=== PATIENT | female | born 1990 | race Caucasian/White ===

== ENCOUNTER 2020-03-06 07:34 | Outpatient (REF) | payer OTHER, SELFPAY | END 2020-03-06 07:35 | disposition home or self-care (01) | LOC: HO.LAB 07:34 | PROVIDERS: Visit Provider Internal Medicine | DX: Z20.828 Contact with and (suspected) exposure to other viral communicable diseases (principal) | CPT/HCPCS: C9803; U0003 ==

== ENCOUNTER 2024-11-09 07:39 | Outpatient (AMB) | payer MEDICARE, SELFPAY ==
--- NOTE | 2024-11-09 07:53 | A.OFFPC_ITS ---
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 Prior PCP? - Does not recall PCP name or practice Last office visit/CPE/labs - 13 years ago Acute issue(s) - Reports anxiety symptoms. I feel like i'm drowning. Reports racing thoughts which interrupts his sleep. Also notes that he is a little sad, hopeless, and depressed. He states, I have a lot going on, but would not elaborate. His symptoms have been ongoing for about 3 months. Past Medical History - Elevated BP readings at medical/dental visits, GERD, anxiety Surgical History - None Family History - Dad: Alcohol abuse, substance abuse - Mom: Hypertension - MGF: Diabetes, hypertension - MGM: Thyroid disease Social History - Former smoker. Does not vape. Drinks 1 2 beers 2 days weekly (weekends), have been drinking that much for several years. Vapes cannabis occasionally, last time was 2 months ago - He generally eats unhealthy. Active bu t does not exercise. Reports difficulty staying asleep. Reports racing thoughts. Sleeps an average of 5 hours; he snores. Health maintenance - Last eye exam was several years ago. R eferred to Ophthalmology for routine eye exam - Last dental visit was a few months ago - Last tetanus vaccine was more than 10 years ago; received Tdap vaccine today - Has not been vaccinated for the flu ; declines vaccination PENDING SALE TO [facility] Medical History (Updated 11/09/24 @ 13:38 by Rolando Bassett CNP) Anxiety Acid reflux Family History (Updated 11/09/24 @ 08:10 by Grecia Bunn MA) Father Alcohol abuse Substance abuse Sister High blood pressure Mother High blood pressure Maternal Grandfather High blood pressure Diabetes Maternal Grandmother FH: thyroid disease Social History (Updated 11/09/24 @ 08:02 by Grecia Bunn MA) Housing: House Patient Tobacco Use Status: Never used Tobacco e-Cigarette/Vaping Use: Currently Using Second Hand Smoke Exposure: No Substance Use Type: Marijuana service: No Current occupational status: employed 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) Cognitive needs: No Hearing needs: No Vision needs: No Questionnaire PHQ-9 Over the last 2 weeks, how often have you been bothered by any of the following problems? 1. Little interest or pleasure in doing things: nearly every day 2. Feeling down, depressed, or hopeless: more than half the days 3. Trouble falling or staying asleep, or sleeping too much: nearly every day 4. Feeling tired or having little energy: nearly every day 5. Poor appetite or overeating: nearly every day 6. Feeling bad about yourself - or that you are a failure or have let yourself or your family down: more than half the days 7. Trouble concentrating on things, such as reading the newspaper or watching television: several days 8. Moving or speaking so slowly that other people could have noticed. Or the opposite - being so fidgety or restless that you have been moving around a lot more than usual: not at all 9. Thoughts that you would be better off or of hurting yourself in some way: not at all Total score: 17 Depression Screening Interpretation: Positive Depression Screening Done: Yes 26500 - PHQ-9 Billing: Yes Source: Developed by Drs. Damon De La Garza, Myra Kemp, Murphy Ray and colleagues, with an educational mary from [employer]. Thrive Questionnaire Date Thrive assessed: 11/09/24 I am a: Patient What is your living situation today?: I have a steady place to live Within the past 12 months, did the food you bought not last and you didn't have the money to get more?: I choose not to answer this question Within the past 12 months, did you worry whether your food would run out before you got money to buy more?: Never true Do you have trouble paying for medicines?: No Do you have trouble getting transportation to medical appointments?: No Do you have trouble paying your heating and electricity bill?: No Do you have trouble taking care of your child, family member or friend?: No Do you have trouble with day-to-day activities such as bathing, preparing meals, shopping, managing finances, etc.?: No Are you currently unemployed and looking for a job?: Yes Are you interested in more education?: I choose not to answer this question Please select the resources that you would like help with: None Currently or been in a relationship where the following occur: No concerns reported THRIVE Score: 0 AUDIT C Alcohol Use Questionnaire (AUDIT-C) 1. How often do you have a drink containing alcohol?: 2-3 times a week 2. How many drinks containing alcohol do you have on a typical day when you are drinking?: 10 or more 3. How often do you have six or more drinks on one occasion?: Weekly Total Score: 10 Score Reviewed/Action Taken: Yes HEATH-7 AMB Questionnaire HEATH-7 Date HEATH - 7 assessed: 11/09/24 Feeling nervous, anxious, or on edge: 2 = More than half the days Not being able to stop or control worryin = More than half the days Worrying too much about different things: 2 = More than half the days Trouble relaxin = More than half the days Being so restless that it is hard to sit still: 1 = Several days Becoming easily annoyed or irritable: 3 = Nearly every day Feeling afraid as if something awful might happen: 0 = Not at all Total HEATH-7 score (0-4 normal; 5-9 mild; 10-14 moderate; 15-21 severe): 12 Source: Developed by Drs. Damon De La Garza, Myra Kemp, Murphy Ray and colleagues, with an educational mary from [employer]. HEATH-7 Assessment Billing HEATH-7 Assessment Tool: HEATH-7 Assessment 73127 Review of Systems Const Details: Denies chills, Denies fatigue, Denies fever(s), Denies headache(s) and Denies weakness HEENT Denies change in vision, Denies dizziness, Denies headache(s), Denies hearing loss, Denies nasal congestion, Denies sinus pain, Denies sinus pressure and Den ies sore throat Card Denies chest pain, Denies lightheadedness, Denies dyspnea and Denies other (palpitations) Resp Denies cough, Denies dyspnea and Denies wheezing GI Denies abdominal pain, Denies melena, Denies hematochezia, Denies change in bowel habits, Denies dyspepsia and Denies nausea Denies hematuria and Denies dysuria Musc Denies abnormal gait, Denies myalgias, Denies arthralgias, Denies numbness and Denies tingling Skin/Breast Denies rash, Denies unusual bruising and Denies wounds Neuro Denies abnormal gait, Denies dizziness, Denies headache(s), Denies memory loss, Denies numbness, Denies Sensory deficit (Neuro), Denies tingling and Denies weakness Psych Reports anxiety, Reports depression and Denies memory loss Endo Denies cold intolerance, Denies fatigue, Denies heat intolerance, Denies polydipsia and Denies polyuria Keenan/Lymph Denies easy bleeding and Denies easy bruising Aller/Immun Denies wheezing Physical exam (Primary Care) Vital Signs: Last Vital Signs Temp 98.1 F 11/09/24 08:02 Pulse 82 11/09/24 08:02 Resp 16 11/09/24 08:02 BP 140/90 H 11/09/24 08:25 Pulse Ox 97 11/09/24 08:02 Oxygen Delivery Method Room Air 11/09/24 08:02 BMI result Body Mass Index 48.4 Tobacco/Smoking Status: Tobacco use Status Tobacco use date assessed 11/09/24 11/09/24 08:02 Patient Tobacco Use Status Never used Tobacco 11/09/24 08:02 e-Cigarette/Vaping Use Currently Using 11/09/24 08:02 PHQ-9: PHQ-9 Score PHQ-9: Total score 17 11/09/24 13:38 Depression Screening Interpretation: Positive Thrive Assessment: Date of Thrive Assessment Date Thrive assessed 11/09/24 11/09/24 07:58 Currently or been in a relationship where the following occur: No concerns reported Const Other: General: no acute distress, well developed, alert and awake Nutritional Appearance: well nourished Orientation/consciousness: patient oriented x3 HENMN Head: Yes normocephalic and Yes atraumatic Ears: hearing grossly normal bilaterally and TM's normal bilaterally General nose exam: Normal external nose present and Normal nares present Mouth: Normal oral and palatal mucosa present and moist mucous membranes Teeth and gingiva: dentition normal Throat: Yes oropharynx normal Eyes Pupils: Equal, round and reactive pupils present and Pupil accommodation reflex normal EOM: EOMs intact bilaterally Neck Neck: Yes normal visual inspection, Yes no lymphadenopathy and Yes trachea midline Thyroid: Thyroid normal Carotids: no bruits Lymphatic: no lymphadenopathy noted Chest Chest palpation & inspection: normal inspection of the chest Resp Effort & Inspection: normal respiratory effort Auscultation: clear to auscultation bilaterally Cardio Rate: regular rate Rhythm: regular rhythm Heart sounds: S1 normal heart sound present, S2 normal heart sound present, no gallops, no murmurs and no rubs Bruits: no abdominal aortic bruits and no carotid bruits GI Palpation (GI): No Abdominal aortic bruit present, Soft to palpation, nontender, No hepatosplenomegaly present and No Rebound tenderness present Auscultation: normal bowel sounds General: Yes no CVA tenderness Back/Spine/Pelvis Back: no CVA tenderness Cervical Spine: cervical ROM normal and No Cervical spine tenderness Thoracic/Lumbar Spine: thoraco-lumbar ROM normal, No pain with thoraco-lumbar ROM, No thoracic spinal tenderness and No lumbar spinal tenderness Skin General: warm and dry. Normal skin color. Normal skin turgor Lesions: no lesions Rashes: no rashes Trauma: no lacerations or abrasions Wounds: no wounds Nails: normal Neuro General: patient oriented x3, gait normal and CN's II-XI intact bilaterally Cranial nerves: Yes Equal, round and reactive pupils present Cognition (Neuro): normal cognition Gait exam (Neuro): Normal gait present Motor exam (neuro): 5/5 motor strength present throughout Sensory Exam: No Sensory deficit (Neuro) Deep tendon reflexes (DTR's): Right patellar reflex intensity grade: 2+ and Left patellar reflex intensity grade: 2+ Extrem General: Yes normal to inspection, No edema and No calf tenderness Psych Appearance: grossly normal Affect: normal affect Attitude: cooperative Thought process: Normal thought process present Immunizations Boostrix Tdap 2.5 Lf unit-8 mcg-5 Lf/0.5 mL intramuscular syringe Performing Provider: Rolando Bassett CNP Performing Location: [facility] [place] [facility] Administered by: Xavier Monson RN on 11/09/24 08:52 Dose Route Admin Location Dispensed Lot Number Expiration Date NDC [employer] 0.5 mL IM Left Deltoid 0.5 mL [id number] 02/01/27 [id number] Grid Mobile Total Dispensed Waste 0.5 mL 0 % VIS Given Date VIS Provided VIS Publication Date 11/09/24 Single Vaccine 20 Eligibility Eligibility Date Funding Source Not [facility] Eligible 11/09/24 Private Coding Level of Care Code New Pt Level 4 (34513) New Pt Prev Care 18-39yr(49356 Diagnoses Normal physical examination, routine Z00.00 Elevated blood pressure reading without diagnosis of hypertension R03.0 Anxiety and depression F41.9; F32.A Alcohol use disorder F10.90 Sleep disturbance G47.9 Snoring R06.83 Morbid obesity with BMI of 45.0-49.9, adult E66.01; Z68.42 Engages in vaping Z72.89 Eye exam, routine Z01.00 Additional Codes HEATH-7 Assessment Billing - HEATH-7 Assessment Tool: HEATH-7 Assessment 41699 ([id number]) PHQ-9 - 74540 - PHQ-9 Billing: Yes ([id number]) Time Spent (min) 60 Assessment & Plan Assessment & Plan (1) Normal physical examination, routine: Code(s): Z00.00 - Encounter for general adult medical examination without abnormal findings Category: Medical Plan: No significant functional limitations noted. Healthy diet and routine exercise encouraged. Perform lab work and follow-up in 1 month for labs review, anxiety, depression, and elevated blood pressure. Return sooner with symptoms or concerns. Verbalized understanding and agreed with the plan. (2) Elevated blood pressure reading without diagnosis of hypertension: Code(s): R03.0 - Elevated blood-pressure reading, without diagnosis of hypertension Category: Medical Plan: Resting blood pressure is 140/90, slightly above goal of less than 140/90. He reports elevated blood pressure readings at medical/dental visits. He has never been treated for hypertension. He generally eats unhealthy, including high sodium. Low-sodium diet and routine exercise encouraged. He has a blood pressure monitor at home. Advised to check his blood pressure once to twice weekly, record readings, and bring to next appointment. Follow-up in 1 month. Verbalized understanding and agreed with the plan. (3) Anxiety and depression: Code(s): F41.9 - Anxiety disorder, unspecified; F32.A - Depression, unspecified Category: Medical Plan: Reports anxiety symptoms. I feel like i'm drowning. Reports racing thoughts which interrupts his sleep. He has difficulty maintaining sleep; sleeps an average of 5 hours. He snores. Also notes that he is a little sad, hopeless, and depressed. He states, I have a lot going on, but would not elaborate. His symptoms have been ongoing for about 3 months. Tearful at times during the interview. PHQ-9 and HEATH-7 scores revealed moderately severe depression and moderate anxiety respectively. Instructed on the effect of excessive alcohol intake on mental and overall health and encouraged to cut down or avoid drinking; no more than 2 drinks daily or 5 weekly. Also instructed on sleep hygiene. Routine exercise encouraged. Referred to sleep medicine for sleep study. Follow-up in 1 month or sooner with worsening or new symptoms. Verbalized understanding and agreed with the plan. (4) Alcohol use disorder: Code(s): F10.90 - Alcohol use, unspecified, uncomplicated Category: Medical Plan: Drinks 12 beers 2 days weekly (weekends), have been drinking that much for several years. Instructed on the effect of excessive alcohol intake on mental and overall health and encouraged to cut down or avoid drinking; no more than 2 drinks daily or 5 weekly. Declines treatment or referral to Comprehensive Care at this time. He notes that he will start cutting down on drinking. Advised to follow up as needed. Verbalized understanding and agreed with the plan. (5) Sleep disturbance: Code(s): G47.9 - Sleep disorder, unspecified Category: Medical Plan: Plan as above. (6) Snoring: Code(s): R06.83 - Snoring Category: Medical Plan: Plan as above. (7) Morbid obesity with BMI of 45.0-49.9, adult: Code(s): E66.01 - Morbid (severe) obesity due to excess calories; Z68.42 - Body mass index [BMI] 45.0-49.9, adult Category: Medical Plan: He currently weighs 337 lb, BMI is 48.4. He generally eats unhealthy. He is active but does not exercise. Declines referral to tobacco sorter/dietitian or weight management clinic and notes that he start making healthy lifestyle changes. Healthy diet and routine exercise encouraged. Verbalized understanding and agreed with the plan. (8) Engages in vaping: Code(s): Z72.89 - Other problems related to lifestyle Category: Medical Plan: He vapes cannabis occasionally, last time was 2 months ago. Instructed on the health risks and complications of vaping and cessation encouraged. Verbalized understanding and agreed with the plan. (9) Eye exam, routine: Code(s): Z01.00 - Encounter for examination of eyes and vision without abnormal findings Category: Medical Plan: Last eye exam was several years ago. Referred to Ophthalmology for routine eye exam. Plan Total time for this visit was 60 minutes. This include 45 minutes with patient, performing complete physical exam and chronic disease management/treatment, and 15 minutes reviewing, coordinating plan of care, and documenting. Orders: Orders Comprehensive [facility]. Panel Fast 11/09/24 Z00.00 - Encounter for general adult medical examination without abnormal findings Lipid Panel 11/09/24 Z.00 - Encounter for general adult medical examination without abnormal findings Microalbumin, Random (w Creat) 11/09/24 Z. - Encounter for general adult medical examination without abnormal findings UA CC w/rflx Micro + Cult 11/09/24 Z.00 - Encounter for general adult medical examination without abnormal findings TDaP Immunization 11/09/24 Z23 - Encounter for immunization Complete Blood Count Auto Diff 11/09/24 Z.00 - Encounter for general adult medical examination without abnormal findings TSH reflex Free T4 11/09/24 Z.00 - Encounter for general adult medical examination without abnormal findings Vitamin D 25-OH Total 11/09/24 Z00.00 - Encounter for general adult medical examination without abnormal findings Referrals Ophthalmology Referral Z01.00 - Encounter for examination of eyes and vision without abnormal findings Sleep Medicine Referral G47.9 - Sleep disorder, unspecified, R06.83 - Snoring
[2024-11-09 08:02] VITALS: BP 162/84; PULSE 82; RESP 16; TEMP 36.7; O2SAT 97; BMI 48.4
[2024-11-09 08:25] VITALS: BP 140/90
== END 2024-11-09 08:48 | disposition home or self-care (01) ==
PROVIDERS: PCP Nurse Practitioner Family; Visit Provider Nurse Practitioner Family
DX: Z23 Encounter for immunization (principal)

== ENCOUNTER → 2024-11-09 07:39 | Outpatient (BNVA) | payer MEDICARE, SELFPAY | PROVIDERS: PCP Nurse Practitioner Family; Visit Provider Nurse Practitioner Family | DX: Z00.00 Encounter for general adult medical examination without abnormal findings (principal); Z23 Encounter for immunization; R03.0 Elevated blood-pressure reading, without diagnosis of hypertension; F41.9 Anxiety disorder, unspecified; F32.A Depression, unspecified; F10.90 Alcohol use, unspecified, uncomplicated; G47.9 Sleep disorder, unspecified; R06.83 Snoring; E66.01 Morbid (severe) obesity due to excess calories; Z68.42 Body mass index [BMI] 45.0-49.9, adult; Z72.89 Other problems related to lifestyle; Z13.31 Encounter for screening for depression; Z13.39 Encounter for screening examination for other mental health and behavioral disorders | CPT/HCPCS: 90471; 90715; 96127; 99202; 99385 ==

== ENCOUNTER 2024-12-08 14:53 | Outpatient (REF) | payer MEDICARE, SELFPAY ==
[2024-12-08 17:56] LABS: MANUAL DIFF FLAG NO
[2024-12-08 18:26] LABS: Hematocrit 39.6 % (42.0-52.0); Hemoglobin 13.4 g/dl (14.0-18.0); Imm Gran Abs Auto 0.03 X10*3/uL (0.00-0.03); Imm Gran Pct Auto 0.3 % (0.0-0.4); Lymphocytes Absolute Auto 1.5 X10*3/uL (1.2-4.9); Mean Corpuscular HGB Conc 33.8 g/dl (31.0-36.0); Mean Corpuscular Hemoglobin 30.7 pg (27.0-33.0); Mean Corpuscular Volume 90.8 fL (80.0-98.0); NRBC Abs Auto 0.000 X10*3/uL (0.0-0.012); NRBC Pct Auto 0.0 /100WBC (0.0-0.2); Platelet Count 334 X10*3/uL (160-400); Red Blood Count 4.36 X10*6/uL (4.60-5.80); White Blood Count 9.4 X10*3/uL (4.8-10.8)
[2024-12-08 18:42] LABS: Microalbum/Creatinine Ratio Ur 10.1 ug/mg cr (<30)
[2024-12-08 18:51] LABS: Alanine Aminotransferase 56 U/L (0-40); Albumin Level 4.6 g/dL (3.5-5.0); Alkaline Phosphatase 76 U/L (39-117); Anion Gap 13 (12-20); Aspartate Amino Transferase 39 U/L (5-37); Blood Urea Nitrogen 16 mg/dL (9-16); Calcium 9.2 mg/dL (8.4-10.2); Carbon Dioxide 27 mmol/L (22-29); Chloride 104 mmol/L (96-108); Cholesterol 169 mg/dL (<200); Estimated Glomerular Filt Rate > 60; HDL Cholesterol 54 mg/dL (>40); Potassium 3.7 mmol/L (3.3-5.1); Sodium 140 mmol/L (135-145); Total Protein 7.5 g/dL (6.5-8.0); Triglycerides 98 mg/dL (<150)
[2024-12-08 19:41] LABS: Appearance Urine Turbid; Glucose Urine UA Negative (Negative); PH 6.0 (5.0-9.0); Specific Gravity - Urine >= 1.030 (1.005-1.025)
== END 2024-12-08 14:54 | disposition home or self-care (01) ==
LOC: HO.WFDLDS 14:53
PROVIDERS: Visit Provider Nurse Practitioner Family
DX: Z00.00 Encounter for general adult medical examination without abnormal findings (principal); Z13.29 Encounter for screening for other suspected endocrine disorder; Z13.0 Encounter for screening for diseases of the blood and blood-forming organs and certain disorders involving the immune mechanism; Z13.6 Encounter for screening for cardiovascular disorders
CPT/HCPCS: 36415; 80053; 80061; 81003; 82043; 82306; 82570; 84443; 85025

== ENCOUNTER 2024-12-14 10:48 | Outpatient (AMB) | payer MEDICARE, SELFPAY ==
--- NOTE | 2024-12-14 10:54 | A.OFFPC_ITS ---
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 Allergies No Known Allergies Allergy (Verified 12/14/24 11:18) Medication List - Last Reconciled 12/14/24 by Rolando Bassett CNP No Known Home Meds Tobacco use date assessed: 12/14/24 Dental Screening Dental Screen Date: 12/14/24 Did you have a dental visit in the last 12 months?: No Did you have a dental problem in the last 6 months where you did not have access to dental care?: No Was dental information given to patient?: Patient has dentist HPI HPI Comments History of Present Illness Details 34-year-old male presents for elevated b lood pressure reading, anxiety, depression, and recent labs review follow-up. He notes that his diet is poor. He consumes a lot of processed food and sodium. He is active but does not exercise. He notes that he cut down to 5-6 beers twice weekly (weekends). He reports controlled anxiety and depressive symptoms. He offers no complaints and denies acute symptoms at this time. [facility] Medical History (Updated 12/14/24 @ 11:36 by Rolando Bassett CNP) Anxiety Acid reflux Family History (Updated 11/09/24 @ 08:10 by Grecia Bunn MA) Father Alcohol abuse Substance abuse Sister High blood pressure Mother High blood pressure Maternal Grandfather High blood pressure Diabetes Maternal Grandmother FH: thyroid disease Social History (Updated 11/09/24 @ 08:02 by Grecia Bunn MA) Housing: House Patient Tobacco Use Status: Never used Tobacco e-Cigarette/Vaping Use: Currently Using Second Hand Smoke Exposure: No Substance Use Type: Marijuana service: No Current occupational status: employed 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) Cognitive needs: No Hearing needs: No Vision needs: No Questionnaire PHQ-9 Over the last 2 weeks, how often have you been bothered by any of the following problems? 1. Little interest or pleasure in doing things: not at all 2. Feeling down, depressed, or hopeless: several days 3. Trouble falling or staying asleep, or sleeping too much: more than half the days 4. Feeling tired or having little energy: more than half the days 5. Poor appetite or overeating: nearly every day 6. Feeling bad about yourself - or that you are a failure or have let yourself or your family down: not at all 7. Trouble concentrating on things, such as reading the newspaper or watching television: not at all 8. Moving or speaking so slowly that other people could have noticed. Or the opposite - being so fidgety or restless that you have been moving around a lot more than usual: not at all 9. Thoughts that you would be better off or of hurting yourself in some way: not at all Total score: 8 Depression Screening Interpretation: Positive Depression Screening Done: Yes 01199 - PHQ-9 Billing: Yes Source: Developed by Drs. Damon De La Garza, Myra Kemp, Murphy Ray and colleagues, with an educational mary from [employer]. Thrive Questionnaire Date Thrive assessed: 11/06/24 I am a: Patient What is your living situation today?: I have a steady place to live Within the past 12 months, did the food you bought not last and you didn't have the money to get more?: I choose not to answer this question Within the past 12 months, did you worry whether your food would run out before you got money to buy more?: Never true Do you have trouble paying for medicines?: No Do you have trouble getting transportation to medical appointments?: No Do you have trouble paying your heating and electricity bill?: No Do you have trouble taking care of your child, family member or friend?: No Do you have trouble with day-to-day activities such as bathing, preparing meals, shopping, managing finances, etc.?: No Are you currently unemployed and looking for a job?: Yes Are you interested in more education?: I choose not to answer this question Please select the resources that you would like help with: None Currently or been in a relationship where the following occur: No concerns reported THRIVE Score: 0 HEATH-7 AMB Questionnaire HEATH-7 Date HEATH - 7 assessed: 12/14/24 Feeling nervous, anxious, or on edge: 1 = Several days Not being able to stop or control worryin = Several days Worrying too much about different things: 2 = More than half the days Trouble relaxin = Not at all Being so restless that it is hard to sit still: 0 = Not at all Becoming easily annoyed or irritable: 3 = Nearly every day Feeling afraid as if something awful might happen: 0 = Not at all Total HEATH-7 score (0-4 normal; 5-9 mild; 10-14 moderate; 15-21 severe): 7 Source: Developed by Drs. Damon De La Garza, Myra Kemp, Murphy Ray and colleagues, with an educational mary from [employer]. HEATH-7 Assessment Billing HEATH-7 Assessment Tool: HEATH-7 Assessment 11431 Review of Systems Const Details: Const Denies chills, Denies fatigue, Denies fever(s), Denies headache(s) and Denies weakness ENT Denies dizziness and Denies headache(s) Card Denies chest pain, Denies lightheadedness, Denies dyspnea and Denies other (Palpitations) Resp Denies cough, Denies dyspnea, Denies wheezing and Denies other ( shortness of breath) GI Denies abdominal pain, Denies melena, Denies hematochezia, Denies change in bowel habits, Denies dyspepsia and Denies nausea Denies hematuria and Denies dysuria Musc Denies abnormal gait, Denies myalgias, Denies arthralgias, Denies numbness and Denies tingling Skin/Breast Denies rash, Denies unusual bruising and Denies wounds Neuro Denies abnormal gait, Denies dizziness, Denies headache(s), Denies memory loss, Denies numbness, Denies Sensory deficit (Neuro), Denies tingling and Denies weakness Psych Denies anxiety, Denies depression, Denies memory loss Endo Denies cold intolerance, Denies fatigue, Denies heat intolerance, Denies polydipsia and Denies polyuria Aller/Immun Denies wheezing Physical exam (Primary Care) Vital Signs: Last Vital Signs Temp 98.8 F 12/14/24 11:01 Pulse 76 12/14/24 11:01 Resp 16 12/14/24 11:01 BP 167/96 H 12/14/24 11:01 Pulse Ox 99 12/14/24 11:01 Oxygen Delivery Method Room Air 12/14/24 11:01 BMI result Body Mass Index 49.4 Tobacco/Smoking Status: Tobacco use Status Tobacco use date assessed 12/14/24 12/14/24 11:04 Patient Tobacco Use Status Never used Tobacco 12/14/24 10:55 e-Cigarette/Vaping Use Currently Using 12/14/24 10:55 PHQ-9: PHQ-9 Score PHQ-9: Total score 8 12/14/24 11:04 Depression Screening Interpretation: Positive Thrive Assessment: Date of Thrive Assessment Date Thrive assessed 11/06/24 12/14/24 10:55 Currently or been in a relationship where the following occur: No concerns reported Const Other: General: no acute distress and well developed Nutritional Appearance: well nourished Orientation/consciousness: patient oriented x3 HENMT Head: Yes normocephalic and Yes atraumatic Eyes General: appearance normal, both eyes and all related structures Pupils: Equal, round and reactive pupils present EOM: EOMs intact bilaterally Resp Effort & Inspection: normal respiratory effort Auscultation: clear to auscultation bilaterally Cardio Rate: regular rate Rhythm: regular rhythm Heart sounds: S1 normal heart sound present, S2 normal heart sound present, no gallops, no murmurs and no rubs GI Palpation (GI): No Abdominal aortic bruit present, Soft to palpation, nontender, No hepatosplenomegaly present and No Rebound tenderness present Auscultation: normal bowel sounds General: Yes no CVA tenderness Back/Spine/Pelvis Back: no CVA tenderness Cervical Spine: cervical ROM normal and No Cervical spine tenderness Thoracic/Lumbar Spine: thoraco-lumbar ROM normal, No pain with thoraco-lumbar ROM, No thoracic spinal tenderness and No lumbar spinal tenderness Extrem General: Yes normal to inspection, No edema and No calf tenderness Skin General: warm and dry. Normal skin color. Normal skin turgor Neuro General: patient oriented x3, gait normal and no focal neuro deficit Cranial nerves: Yes Equal, round and reactive pupils present Cognition (Neuro): normal cognition Gait exam (Neuro): Normal gait present Sensory Exam: No Sensory deficit (Neuro) Psych Appearance: grossly normal Affect: normal affect Attitude: cooperative Thought process: Normal thought process present Coding Level of Care Code Est Pt Level 4 (00065) Diagnoses Hypertension I10 Anxiety and depression F41.9; F32.A Normocytic anemia D64.9 Transaminitis R74.01 Vitamin D deficiency E55.9 Alcohol use disorder F10.90 Additional Codes HEATH-7 Assessment Billing - HEATH-7 Assessment Tool: HEATH-7 Assessment 30641 ([id number]) PHQ-9 - 55645 - PHQ-9 Billing: Yes ([id number]) Assessment & Plan Assessment & Plan (1) Hypertension: Code(s): I10 - Essential (primary) hypertension Category: Medical Plan: Resting blood pressure is 156/96, above goal of less than 140/90. Heart rate is 80. He notes family history of hypertension. Excessive alcohol intake and morbid obesity may also be contributory factors. Metoprolol 25 mg daily ordered; advised to take as prescribed. Instructed on the risks, benefits, and potential adverse reactions of the medication. Encouraged to cut down or avoid drinking. Weight management encouraged. Advised to monitor his blood pressure 2 to 3 times weekly; record readings, and bring to his next appointment. Follow-up in 2 weeks or sooner with symptoms or concerns. Verbalized understanding and agreed with the plan. (2) Anxiety and depression: Code(s): F41.9 - Anxiety disorder, unspecified; F32.A - Depression, unspecified Category: Medical Plan: Reports controlled anxiety and depressive symptoms. PHQ-9 and HEATH-7 scores revealed mild depression and anxiety. Encouraged to cut down and avoid alcohol intake. Routine exercise encouraged. Follow-up as needed. Verbalized understanding and agreed with plan. (3) Normocytic anemia: Code(s): D64.9 - Anemia, unspecified Category: Medical Plan: Recent RBC and H&H slightly low. Equivocal. However, alcohol may be a contributory cause. Encouraged to cut down or avoid drinking -no more than 2 drinks daily or 5 weekly. Will monitor CBC annually or as needed. Verbalized understanding and agreed with the plan. (4) Transaminitis: Code(s): R74.01 - Elevation of levels of liver transaminase levels Category: Medical Plan: Recent AST and ALT levels are slightly elevated, 39 and 56 respectively. Likely attributed to morbid obesity and excessive alcohol intake. Encouraged to stop or limit alcohol intake. With management encouraged. Will recheck lipid panel in 2 months. Verbalized understanding and agreed with the plan. (5) Vitamin D deficiency: Code(s): E55.9 - Vitamin D deficiency, unspecified Category: Medical Plan: Recent vitamin-D level is low, 19.4. Vitamin D3 1000 units daily ordered; advised to take as prescribed. Will recheck vitamin-D level in 2 months Verbalized understanding and agreed with the plan. (6) Alcohol use disorder: Code(s): F10.90 - Alcohol use, unspecified, uncomplicated Category: Medical Plan: He notes that he cut down to 5-6 beers twice weekly (weekends), from 12 beers twice weekly. Instructed on the health risks and complications of excessive alcohol intake. Encouraged to cut down or avoid alcohol intake. No more than 2 drinks daily or 5 weekly. Verbalized understanding and agreed with the plan. Medications: New cholecalciferol (vitamin D3) 25 mcg PO DAILY 90 tabs 3RF 90 days metoprolol tartrate 25 mg PO DAILY 30 tabs 3RF 30 days
[2024-12-14 11:01] VITALS: BP 167/96; PULSE 76; RESP 16; TEMP 37.1; O2SAT 99; BMI 49.4
[2024-12-14 11:28] VITALS: BP 156/96; PULSE 80
== END 2024-12-14 11:39 | disposition home or self-care (01) ==
LOC: HO.HMCFM 10:50
PROVIDERS: PCP Nurse Practitioner Family; Visit Provider Nurse Practitioner Family
DX: I10 Essential (primary) hypertension (principal); F41.9 Anxiety disorder, unspecified; F32.A Depression, unspecified; D64.9 Anemia, unspecified; R74.01 Elevation of levels of liver transaminase levels; E55.9 Vitamin D deficiency, unspecified; F10.90 Alcohol use, unspecified, uncomplicated

== ENCOUNTER → 2024-12-14 10:48 | Outpatient (BNVA) | payer MEDICARE, SELFPAY | PROVIDERS: PCP Nurse Practitioner Family; Visit Provider Nurse Practitioner Family | DX: R03.0 Elevated blood-pressure reading, without diagnosis of hypertension (principal); F41.9 Anxiety disorder, unspecified; F32.A Depression, unspecified; I10 Essential (primary) hypertension; D64.9 Anemia, unspecified; E55.9 Vitamin D deficiency, unspecified; F10.90 Alcohol use, unspecified, uncomplicated | CPT/HCPCS: 96127; 99212 ==

== ENCOUNTER 2025-01-17 12:34 | Outpatient (AMB) | payer MEDICARE, SELFPAY ==
--- NOTE | 2025-01-17 12:45 | A.OFFPC_ITS ---
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 Allergies No Known Allergies Allergy (Verified 01/17/25 13:05) Medication List - Last Reconciled 01/17/25 by Rolando Bassett CNP cholecalciferol (vitamin D3) 25 mcg PO DAILY 90 days metoprolol tartrate 25 mg PO DAILY 30 days Tobacco use date assessed: 01/17/25 Dental Screening Dental Screen Date: 01/17/25 Did you have a dental visit in the last 12 months?: No Did you have a dental problem in the last 6 months where you did not have access to dental care?: No Was dental information given to patient?: Patient has dentist HPI HPI Comments History of Present Illness Details 34-year-old male presents for hypertensi on follow-up. He admits to taking metoprolol as prescribed without adverse reactions. He has not drank alcohol in the past 5 weeks. He has been been making dietary changes and walking more. He notes intermittent blurry vision vision and pressure to the left eye with associated headache three times weekly; his symptoms would persist for 3-4 hours. His symptoms have been ongoing for the past 2 years. Last time he experienced symptoms was 2 days ago. He monitors his blood pressure twice weekly and average 135/83. [facility] Medical History (Updated 01/17/25 @ 13:14 by Rolando Bassett CNP) Anxiety Acid reflux Family History (Updated 11/09/24 @ 08:10 by Grecia Bunn MA) Father Alcohol abuse Substance abuse Sister High blood pressure Mother High blood pressure Maternal Grandfather High blood pressure Diabetes Maternal Grandmother FH: thyroid disease Social History (Updated 11/09/24 @ 08:02 by Grecia Bunn MA) Housing: House Patient Tobacco Use Status: Never used Tobacco e-Cigarette/Vaping Use: Currently Using Second Hand Smoke Exposure: No Substance Use Type: Marijuana service: No Current occupational status: employed 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) Cognitive needs: No Hearing needs: No Vision needs: No Questionnaire Thrive Questionnaire Date Thrive assessed: 11/06/24 I am a: Patient What is your living situation today?: I have a steady place to live Within the past 12 months, did the food you bought not last and you didn't have the money to get more?: I choose not to answer this question Within the past 12 months, did you worry whether your food would run out before you got money to buy more?: Never true Do you have trouble paying for medicines?: No Do you have trouble getting transportation to medical appointments?: No Do you have trouble paying your heating and electricity bill?: No Do you have trouble taking care of your child, family member or friend?: No Do you have trouble with day-to-day activities such as bathing, preparing meals, shopping, managing finances, etc.?: No Are you currently unemployed and looking for a job?: Yes Are you interested in more education?: I choose not to answer this question Please select the resources that you would like help with: None Currently or been in a relationship where the following occur: No concerns reported THRIVE Score: 0 HEATH-7 AMB Questionnaire HEATH-7 Date HEATH - 7 assessed: 12/14/24 Source: Developed by Drs. Damon De La Garza, Myra Kemp, Murphy Ray and colleagues, with an educational mary from [employer]. Review of Systems Const Details: Const Denies chills, Denies fatigue, Denies fever(s), Denies headache(s) and Denies weakness HEENT Reports as per HPI Card Denies chest pain, Denies lightheadedness, Denies dyspnea and Denies other (Palpitations) Resp Denies cough, Denies dyspnea, Denies wheezing and Denies other ( shortness of breath) GI Denies abdominal pain, Denies melena, Denies hematochezia, Denies change in bowel habits, Denies dyspepsia and Denies nausea Denies hematuria and Denies dysuria Musc Denies abnormal gait, Denies myalgias, Denies arthralgias, Denies numbness and Denies tingling Skin/Breast Denies rash, Denies unusual bruising and Denies wounds Neuro Denies abnormal gait, Denies dizziness, Denies headache(s), Denies memory loss, Denies numbness, Denies Sensory deficit (Neuro), Denies tingling and Denies weakness Psych Denies anxiety, Denies depression, Denies memory loss Endo Denies cold intolerance, Denies fatigue, Denies heat intolerance, Denies polydipsia and Denies polyuria Aller/Immun Denies wheezing Physical exam (Primary Care) Vital Signs: Last Vital Signs Temp 98.3 F 01/17/25 12:48 Pulse 63 01/17/25 12:48 Resp 16 01/17/25 12:48 BP 169/92 H 01/17/25 12:48 Pulse Ox 98 01/17/25 12:48 Oxygen Delivery Method Room Air 01/17/25 12:48 BMI result Body Mass Index 48.4 Tobacco/Smoking Status: Tobacco use Status Tobacco use date assessed 01/17/25 01/17/25 12:51 Patient Tobacco Use Status Never used Tobacco 01/17/25 12:47 e-Cigarette/Vaping Use Currently Using 01/17/25 12:47 Thrive Assessment: Date of Thrive Assessment Date Thrive assessed 11/06/24 01/17/25 12:47 Currently or been in a relationship where the following occur: No concerns reported Const Other: General: no acute distress and well developed Nutritional Appearance: well nourished Orientation/consciousness: patient oriented x3 HENMT Head: Yes normocephalic and Yes atraumatic Eyes General: appearance normal, both eyes and all related structures Pupils: Equal, round and reactive pupils present EOM: EOMs intact bilaterally Resp Effort & Inspection: normal respiratory effort Auscultation: clear to auscultation bilaterally Cardio Rate: regular rate Rhythm: regular rhythm Heart sounds: S1 normal heart sound present, S2 normal heart sound present, no gallops, no murmurs and no rubs GI Palpation (GI): No Abdominal aortic bruit present, Soft to palpation, nontender, No hepatosplenomegaly present and No Rebound tenderness present Auscultation: normal bowel sounds General: Yes no CVA tenderness Back/Spine/Pelvis Back: no CVA tenderness Cervical Spine: cervical ROM normal and No Cervical spine tenderness Thoracic/Lumbar Spine: thoraco-lumbar ROM normal, No pain with thoraco-lumbar ROM, No thoracic spinal tenderness and No lumbar spinal tenderness Extrem General: Yes normal to inspection, No edema and No calf tenderness Skin General: warm and dry. Normal skin color. Normal skin turgor Neuro General: patient oriented x3, gait normal and no focal neuro deficit Cranial nerves: Yes Equal, round and reactive pupils present Cognition (Neuro): normal cognition Gait exam (Neuro): Normal gait present Sensory Exam: No Sensory deficit (Neuro) Psych Appearance: grossly normal Affect: normal affect Attitude: cooperative Thought process: Normal thought process present Coding Level of Care Code Est Pt Level 4 (42227) Diagnoses Blurry vision, left eye H53.8 Hypertension I10 Assessment & Plan Assessment & Plan (1) Blurry vision, left eye: Code(s): H53.8 - Other visual disturbances Category: Medical Plan: He notes intermittent blurry vision vision and pressure to the left eye with associated headache three times weekly; his symptoms would persist for 3-4 hours. His symptoms have been ongoing for the past 2 years. Last time he experienced symptoms was 2 days ago. He monitors his blood pressure twice weekly and average 135/83. Likely due to chronic untreated hypertension. His blood pressure is currently within goal. However, will increase metoprolol to 50 mg daily for better control of his blood pressure and possibly resolution of left eye symptoms. He had a referral to Ophthalmology which has been escalated to stat. Phone number of [employer] provided to patient with instruction to contact them by the end of this week if he does not hear from them. Follow-up with worsening or new symptoms. Verbalized understanding and agreed with the treatment plan. (2) Hypertension: Code(s): I10 - Essential (primary) hypertension Category: Medical Plan: Resting blood pressure is 136/84, within goal of less than 140/90. Heart rate is 76. Metoprolol increased to 50 mg due to intermittent blurry vision of left eye which may be attributed to elevated BP. He may require a goal of less than 130/80 for better blood blood pressure control and control of left vision symptoms. Low-sodium diet encouraged. Perform fasting blood work before next visit. Follow-up in 1 month or sooner with symptoms or concerns. Verbalized understanding and agreed with the plan. Orders: Orders Vitamin D 25-OH Total 1 Month E55.9 - Vitamin D deficiency, unspecified Liver Panel 1 Month R74.01 - Elevation of levels of liver transaminase levels Referrals Ophthalmology Referral H53.8 - Other visual disturbances Medications: Changed From metoprolol tartrate 25 mg PO DAILY 30 days 30 tabs 3RF To metoprolol tartrate 50 mg (2 x 25 mg) PO DAILY 60 tabs 3RF 30 days
[2025-01-17 12:48] VITALS: BP 169/92; PULSE 63; RESP 16; TEMP 36.8; O2SAT 98; BMI 48.4
[2025-01-17 13:08] VITALS: BP 136/84; PULSE 76
== END 2025-01-17 13:21 | disposition home or self-care (01) ==
LOC: HO.HMCFM 12:35
PROVIDERS: PCP Nurse Practitioner Family; Visit Provider Nurse Practitioner Family
DX: H53.8 Other visual disturbances (principal); I10 Essential (primary) hypertension

== ENCOUNTER → 2025-01-17 12:34 | Outpatient (BNVA) | payer MEDICARE, SELFPAY | PROVIDERS: PCP Nurse Practitioner Family; Visit Provider Nurse Practitioner Family | DX: I10 Essential (primary) hypertension (principal); H53.8 Other visual disturbances; H51.9 Unspecified disorder of binocular movement; E55.9 Vitamin D deficiency, unspecified; R74.01 Elevation of levels of liver transaminase levels | CPT/HCPCS: 99212 ==

== ENCOUNTER 2025-02-09 11:19 | Outpatient (REF) | payer MEDICARE, SELFPAY ==
[2025-02-09 14:26] LABS: Alanine Aminotransferase 42 U/L (0-40); Albumin Level 4.6 g/dL (3.5-5.0); Alkaline Phosphatase 68 U/L (39-117); Aspartate Amino Transferase 29 U/L (5-37); Total Protein 7.4 g/dL (6.5-8.0)
== END 2025-02-09 11:20 | disposition home or self-care (01) ==
LOC: HO.WFDLDS 11:19
PROVIDERS: Visit Provider Nurse Practitioner Family
DX: R74.01 Elevation of levels of liver transaminase levels (principal); E55.9 Vitamin D deficiency, unspecified
CPT/HCPCS: 36415; 80076; 82306

== ENCOUNTER 2025-02-18 12:31 | Outpatient (AMB) | payer MEDICARE, SELFPAY ==
--- NOTE | 2025-02-18 12:34 | A.OFFPC_ITS ---
Vital Signs 02/18/25 12:41 02/18/25 13:00 Height 5 ft 10 in Weight 335 lb 4 oz BMI 48.1 BP 142/81 H 138/82 Blood Pressure Location Rt brachial Rt brachial Position Sitting Sitting Respiration 16 Pulse 59 60 Pulse Source Pulse Oximeter Auscultation Temp 98.5 F Temp Source Oral Pulse Oximetry (%) 98 Oxygen Delivery Method Room Air Intake Visit Reasons: 1 mos HTN, vit d def, transaminitis Intake Note: patient here for 1 month follow up on HTN, Vit D def, and transaminitis Clinical Training Coordinator Required: No Allergies No Known Allergies Allergy (Verified 02/18/25 12:54) Medication List - Last Reconciled 02/18/25 by Rolando Bassett CNP cholecalciferol (vitamin D3) 25 mcg PO DAILY 90 days metoprolol tartrate 50 mg (2 x 25 mg) PO DAILY 30 days Tobacco use date assessed: 02/18/25 Dental Screening Dental Screen Date: 02/18/25 Did you have a dental visit in the last 12 months?: Yes Did you have a dental problem in the last 6 months where you did not have access to dental care?: No Was dental information given to patient?: Patient has dentist HPI HPI Comments History of Present Illness Details 35-year-old male presents for hypertensi on, transaminitis, and vitamin- D deficiency follow-up. He admits to taking his medications as prescribed without adverse reactions. He states that his diet is not the best but continues to make progress and making healthy choices. He started going to the gym. 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 Jaime. No acute symptoms at this time. [facility] Medical History (Updated 01/17/25 @ 13:14 by Rolando Bassett CNP) Anxiety Acid reflux Family History (Updated 11/09/24 @ 08:10 by KOLTON Ramires) Father Alcohol abuse Substance abuse Sister High blood pressure Mother High blood pressure Maternal Grandfather High blood pressure Diabetes Maternal Grandmother FH: thyroid disease Social History (Updated 11/09/24 @ 08:02 by KOLTON Ramires) Housing: House Patient Tobacco Use Status: Never used Tobacco e-Cigarette/Vaping Use: Currently Using Second Hand Smoke Exposure: No Substance Use Type: Marijuana service: No Current occupational status: employed 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) Cognitive needs: No Hearing needs: No Vision needs: No Questionnaire Thrive Questionnaire Date Thrive assessed: 11/06/24 I am a: Patient What is your living situation today?: I have a steady place to live Within the past 12 months, did the food you bought not last and you didn't have the money to get more?: I choose not to answer this question Within the past 12 months, did you worry whether your food would run out before you got money to buy more?: Never true Do you have trouble paying for medicines?: No Do you have trouble getting transportation to medical appointments?: No Do you have trouble paying your heating and electricity bill?: No Do you have trouble taking care of your child, family member or friend?: No Do you have trouble with day-to-day activities such as bathing, preparing meals, shopping, managing finances, etc.?: No Are you currently unemployed and looking for a job?: Yes Are you interested in more education?: I choose not to answer this question Please select the resources that you would like help with: None Currently or been in a relationship where the following occur: No concerns reported THRIVE Score: 0 HEATH-7 AMB Questionnaire HEATH-7 Date HEATH - 7 assessed: 12/14/24 Source: Developed by Drs. Damon De La Garza, Myra Kemp, Murphy Ray and colleagues, with an educational mary from [employer]. Review of Systems Const Details: Const Denies chills, Denies fatigue, Denies fever(s), Denies headache(s) and Denies weakness ENT Denies dizziness and Denies headache(s) Card Denies chest pain, Denies lightheadedness, Denies dyspnea and Denies other (Palpitations) Resp Denies cough, Denies dyspnea, Denies wheezing and Denies other ( shortness of breath) GI Denies abdominal pain, Denies melena, Denies hematochezia, Denies change in bowel habits, Denies dyspepsia and Denies nausea Denies hematuria and Denies dysuria Musc Denies abnormal gait, Denies myalgias, Denies arthralgias, Denies numbness and Denies tingling Skin/Breast Denies rash, Denies unusual bruising and Denies wounds Neuro Denies abnormal gait, Denies dizziness, Denies headache(s), Denies memory loss, Denies numbness, Denies Sensory deficit (Neuro), Denies tingling and Denies weakness Psych Denies anxiety, Denies depression, Denies memory loss Endo Denies cold intolerance, Denies fatigue, Denies heat intolerance, Denies polydipsia and Denies polyuria Aller/Immun Denies wheezing Physical exam (Primary Care) Vital Signs: Last Vital Signs Temp 98.5 F 02/18/25 12:41 Pulse 59 02/18/25 12:41 Resp 16 02/18/25 12:41 BP 142/81 H 02/18/25 12:41 Pulse Ox 98 02/18/25 12:41 Oxygen Delivery Method Room Air 02/18/25 12:41 BMI result Body Mass Index 48.1 Tobacco/Smoking Status: Tobacco use Status Tobacco use date assessed 02/18/25 02/18/25 12:44 Patient Tobacco Use Status Never used Tobacco 02/18/25 12:36 e-Cigarette/Vaping Use Currently Using 02/18/25 12:36 Thrive Assessment: Date of Thrive Assessment Date Thrive assessed 11/06/24 02/18/25 12:36 Currently or been in a relationship where the following occur: No concerns reported Const Other: General: no acute distress and well developed Nutritional Appearance: well nourished Orientation/consciousness: patient oriented x3 HENMT Head: Yes normocephalic and Yes atraumatic Eyes General: appearance normal, both eyes and all related structures Pupils: Equal, round and reactive pupils present EOM: EOMs intact bilaterally Resp Effort & Inspection: normal respiratory effort Auscultation: clear to auscultation bilaterally Cardio Rate: regular rate Rhythm: regular rhythm Heart sounds: S1 normal heart sound present, S2 normal heart sound present, no gallops, no murmurs and no rubs GI Palpation (GI): No Abdominal aortic bruit present, Soft to palpation, nontender, No hepatosplenomegaly present and No Rebound tenderness present Auscultation: normal bowel sounds General: Yes no CVA tenderness Back/Spine/Pelvis Back: no CVA tenderness Cervical Spine: cervical ROM normal and No Cervical spine tenderness Thoracic/Lumbar Spine: thoraco-lumbar ROM normal, No pain with thoraco-lumbar ROM, No thoracic spinal tenderness and No lumbar spinal tenderness Extrem General: Yes normal to inspection, No edema and No calf tenderness Skin General: warm and dry. Normal skin color. Normal skin turgor Neuro General: patient oriented x3, gait normal and no focal neuro deficit Cranial nerves: Yes Equal, round and reactive pupils present Cognition (Neuro): normal cognition Gait exam (Neuro): Normal gait present Sensory Exam: No Sensory deficit (Neuro) Psych Appearance: grossly normal Affect: normal affect Attitude: cooperative Thought process: Normal thought process present Coding Level of Care Code Est Pt Level 3 (75736) Diagnoses Hypertension I10 Vitamin D deficiency E55.9 Transaminitis R74.01 Assessment & Plan Assessment & Plan (1) Hypertension: Code(s): I10 - Essential (primary) hypertension Category: Medical Plan: Resting blood pressure is 138/82, within goal of less than 140/90. Continue current treatment regimen. Routine exercise encouraged. Follow-up in 2 months for transfer of care with a new PCP and hypertension. Return sooner with symptoms or concerns. Verbalized understanding and agreed with the plan. (2) Vitamin D deficiency: Code(s): E55.9 - Vitamin D deficiency, unspecified Category: Medical Plan: Recent vitamin-D level is normal, 32.6. Continue current treatment regimen. Verbalized understanding and agreed with the plan. (3) Transaminitis: Code(s): R74.01 - Elevation of levels of liver transaminase levels Category: Medical Plan: Recent ALT level is slightly elevated, 42, AST level is normal. Healthy diet/weight management encouraged. Will monitor lipid panel annually or if clinically indicated. Verbalized understanding and agreed with the plan. Patient Instructions: Encouraged to follow-up with Dr. Jaime as planned. Verbalized understanding and agreed with the plan.
[2025-02-18 12:41] VITALS: BP 142/81; PULSE 59; RESP 16; TEMP 36.9; O2SAT 98; BMI 48.1
[2025-02-18 13:00] VITALS: BP 138/82; PULSE 60
== END 2025-02-18 13:05 | disposition home or self-care (01) ==
LOC: HO.HMCFM 12:32
PROVIDERS: PCP Nurse Practitioner Family; Visit Provider Nurse Practitioner Family
DX: I10 Essential (primary) hypertension (principal); E55.9 Vitamin D deficiency, unspecified; R74.01 Elevation of levels of liver transaminase levels

== ENCOUNTER → 2025-02-18 12:31 | Outpatient (BNVA) | payer MEDICARE, SELFPAY | PROVIDERS: PCP Nurse Practitioner Family; Visit Provider Nurse Practitioner Family | DX: I10 Essential (primary) hypertension (principal); E55.9 Vitamin D deficiency, unspecified; R74.01 Elevation of levels of liver transaminase levels | CPT/HCPCS: 99212 ==